=== PATIENT | female | born 1985 | race Caucasian/White ===

== ENCOUNTER 2021-11-11 10:48 | Day surgery (SDC) | payer MEDICAID ==
[2021-11-04 15:39] LABS: BASOPHILS # (AUTO) 0.1 X10'3 (0-0.2); BASOPHILS % (AUTO) 0.6 % (0-1); EOSINOPHILS # (AUTO) 0.2 X10'3 (0-0.9); EOSINOPHILS % (AUTO) 1.6 % (0-6); LYMPHOCYTES # (AUTO) 1.8 X10'3 (1.1-4.8); LYMPHOCYTES % (AUTO) 15.5 % (21-51); MEAN CORPUSCULAR HEMOGLOBIN 29.9 PG (27.0-31.0); MEAN CORPUSCULAR HGB CONC 33.3 g/dL (33.0-36.5); MEAN CORPUSCULAR VOLUME 89.7 FL (78-98); MEAN PLATELET VOLUME 9.2 FL (7.4-10.4); MONOCYTES # (AUTO) 0.7 X10'3 (0-0.9); NEUTROPHILS % (AUTO) 76.3 % (42-75); PRE OP HEMATOCRIT 43.5 % (35.0-45.0); PRE OP HEMOGLOBIN 14.5 g/dL (12.0-16.0); PRE OP PLATELET COUNT 305 X10'3 (140-440); RED BLOOD COUNT 4.85 X10'6 (4.20-5.60); RED CELL DISTRIBUTION WIDTH 13.4 % (11.5-14.5)
[2021-11-04 15:48] LABS: CLARITY,URINE CLOUDY (Clear); COLOR,URINE YELLOW (Yellow); GLUCOSE, URINE NEGATIVE (Neg); KETONES,URINE NEGATIVE (Neg); LEUKOCYTE ESTERASE ,URINE NEGATIVE (Neg); NITRITES, URINE NEGATIVE (Neg); OCCULT BLOOD,URINE NEGATIVE (Neg); PH,URINE 5.5 (4.8-8.0); PROTEIN,URINE NEGATIVE (Neg); UROBILINOGEN,URINE 0.2 E.U/dL (0.2-1.0)
[2021-11-04 15:49] LABS: UA COLLECTION TYPE CLN CATCH MIDSTREAM
[2021-11-04 15:55] LABS: HYALINE CASTS 0-3 /LPF (NEGATIVE); MUCUS STRANDS MANY /LPF (Neg); SQUAMOUS EPITHELIAL CELL,UR MANY /LPF (FEW)
[2021-11-04 15:56] LABS: BACTERIA,URINE FEW /HPF (Neg); RBC,URINE 0-2 /HPF (0-2); WBC,URINE 0-4 /HPF (0-4)
[2021-11-04 15:58] LABS: ALBUMIN 3.8 G/DL (3.4-5.0); ALKALINE PHOSPHATASE 70 IU/L (46-116); BLOOD UREA NITROGEN 15 MG/DL (7-18); BUN/CREATININE RATIO 16.3 (6.6-38.0); CALCIUM 9.2 MG/DL (8.5-10.1); CHLORIDE 107 MMOL/L (99-107); CREATININE 0.92 MG/DL (0.40-0.90); PRE OP ALT 21 U/L (30-65); PRE OP ANION GAP 8 (8-16); PRE OP AST 13 U/L (10-37); PRE OP BILIRUB, TOTAL 0.2 MG/DL (0.0-1.0); PRE OP GLUCOSE 132 MG/DL (70-104); PRE OP POTASSIUM 4.2 MMOL/L (3.4-5.1); PRE OP SODIUM 139 MMOL/L (135-145); TOTAL CARBON DIOXIDE 24.4 MMOL/L (24-32); TOTAL PROTEIN 7.6 G/DL (6.4-8.2); eGFR 69 ML/MIN
[2021-11-04 16:24] LABS: HCG SERUM QL NEGATIVE
[~2021-11-11] VITALS: Ht 160 cm; Wt 106.2 kg
[2021-11-11] VITALS (14 sets, daily range): BP systolic 117–142; BP diastolic 74–94
[~2021-11-11 10:48] MED LIST: ASPI-147 PO; CHOL200080 PO; PREN1COM10 PO; ceFOXitin 2GM-NS 100mL ADDvant 100 ML IV ONE; famotidine 20mg tablet PO ONE; ringers solution, lacted 1,000 ML IV SCH
[2021-11-11] MEDS ORDERED: hydrALAZINE 20mg/ml inj. IV PRN ×2 (10:55→12:20)
[2021-11-11] MEDS ORDERED: morphine 4 MG/ML inj SYRINge IV PRN ×2 (10:55→12:20)
[2021-11-11] MEDS ORDERED: ondansetron/PF 4mg/2ml inj IV PRN ×2 (10:55→12:20)
[2021-11-11] MEDS ORDERED: labetalol 20mg/4ml (5mg/ml) syringe IV PRN ×2 (10:55→12:20)
[2021-11-11] MEDS ORDERED: fentaNYL/PF 50MCG/1 ML 2ML syringe IV PRN ×4 (10:55→12:20)
[2021-11-11] MEDS ORDERED: morphine 2 MG/ML inj. syringe IV PRN ×2 (10:55→12:20)
[2021-11-11] MEDS ORDERED: ringers solution, lacted 1,000 ML IV SCH ×2 (10:55→12:20)
[2021-11-11] MEDS ORDERED: BUPIVAcaine/PF 7.5mg/ml (0.75%) 10ml vial ONE (12:08)
[2021-11-11] MEDS ORDERED: desflurane 240ml liquid inh. IH ONE (12:21)
[2021-11-11] MEDS ORDERED: sevoflurane 250ml liquid IH ONE (12:21)
[2021-11-11] MEDS ORDERED: neostigmine methylsulfate 1 MG/ML 10ml vial ONE (12:21)
[2021-11-11] MEDS ORDERED: dexamethasone sod phosphate 10mg/ml inj ONE (12:21)
[2021-11-11] MEDS ORDERED: fentaNYL/PF 50MCG/1 ML 2ML syringe ONE (12:22)
[2021-11-11] MEDS ORDERED: LIDOcaine 1%/PF 5ML 10 MG/ML VIAL ONE (12:22)
[2021-11-11] MEDS ORDERED: midazolam 1 mg/ML 2ml injection ONE (12:22)
[2021-11-11] MEDS ORDERED: rocuronium 10mg/ml inj IV ONE (12:23)
[2021-11-11] MEDS ORDERED: glycopyrrolate 0.2mg/ml inj ONE ×3 (12:23→12:24)
[2021-11-11] MEDS ORDERED: ondansetron/PF 4mg/2ml inj ONE (12:23)
[2021-11-11] MEDS ORDERED: propofol inj 20 ML IV ONE (12:23)
--- NOTE | 2021-11-11 13:17 | NUR ---
Received from OR via [facility] , accompanied by Anesthesiologist JYOTI and report given by Anesthesiolgist. PATIENT WITH 20G PIV IN RIGHT UR RUNNING LR AT 100. DENIES PAIN. SLIGHT CRAMPING TO ABDOMEN. LAP SITES TO ABDOMEN THAT ARE CDI AND EMMA PAD IN PLACE. Addendum: 11/11/21 at 1326 by Akbar Boss RN, RN Amended: Links added.
[2021-11-11] MEDS ORDERED: ibuprofen 200mg tablet PO ONE ×2 (14:15→14:45)
[2021-11-11] MEDS ORDERED: ibuprofen tablet 400 MG TABLET PO ONE (14:15)
--- NOTE | 2021-11-11 15:36 | NUR ---
ALL DISCHARGE CRITERIA HAS BEEN MET. VSS, PAIN AT A TOLERABLE LEVEL, ABLE TO SAFELY AMBULATE AND TRANSFER SELF. IV TAKEN OUT WITHOUT ANY COMPLICATIONS. ALL DISCHARGE INSTRUCTIONS COVERED WITH PATIENT AND ALL QUESTIONS ANSWERED. PATIENT TAKEN OUT VIA WHEELCHAIR TO PERSONAL VEHICLE WHERE FAMILY DROVE PATIENT HOME. Addendum: 11/11/21 at 1536 by Geremias Lee RN Amended: Links added.
== END 2021-11-11 15:17 | disposition home or self-care (01) ==
LOC: PAS 10:48
PROVIDERS: ATTEND Obstetrics & Gynecology Obstetrics
DX: Z30.2 Encounter for sterilization (principal); G43.909 Migraine, unspecified, not intractable, without status migrainosus; E66.01 Morbid (severe) obesity due to excess calories; Z68.41 Body mass index [BMI] 40.0-44.9, adult; Z20.822 Contact with and (suspected) exposure to COVID-19; Z79.899 Other long term (current) drug therapy; Z87.442 Personal history of urinary calculi; Z88.8 Allergy status to other drugs, medicaments and biological substances; Z88.2 Allergy status to sulfonamides
CPT/HCPCS: 36415; 58670; 71046; 80053; 81001; 82948; 84703; 85025; 86885; 86900; 86901; J0694; J1100; J2250; J2405; J2704; J2710; J3010; J3490; J7030; J7120; U0003; U0005; Z7506; Z7512; A4618; A7000